=== PATIENT | female | born 1995 | race Caucasian/White ===

== ENCOUNTER → 2020-11-27 | Outpatient (CLI) | payer OTHER ==
--- NOTE | 2020-11-27 13:01 | REP ---
INDICATION: UTERINE ANOMALY. COMPARISON: There is an outside prior which I do not have for comparison TECHNIQUE: Transabdominal FINDINGS: Multiple ultrasonographic images of the gravid uterus shows a single living intrauterine gestation in the cephalic presentation. Doppler interrogation of the heart shows a heart rate of 147 beats per minute. The placenta is posterior and not low-lying. The cervix measures 3.9 cm in length and is closed. The subjective amniotic fluid volume is within normal limits. The calculated amniotic fluid index is 17.1 within expected range of 8.6-24.2. BPD: 8.5 cm 34 weeks 2 days HC: 31.1 cm 34 weeks 5 days AC: 29.0 cm 33 weeks 0 days FL: 6.4 cm 33 weeks 0 days The estimated weight is 2167 g which is at the 82nd percentile for a 31 week 6 day gestational age. The fetus was too large for a anatomical screen. No anomalies were identified, however, multiple anatomical structures were suboptimally visualized IMPRESSION: Limited OB ultrasound showing a single living intrauterine gestation as described above with an estimated gestational age of 33 weeks 4 days via composite criteria and an estimated date of delivery of 01/11/2021 by today's exam. <Electronically signed by Richy Solorzano > 11/27/20 1257
== END ==
LOC: M RAD 10:56
PROVIDERS: ATTEND Obstetrics & Gynecology
DX: Z34.83 Encounter for supervision of other normal pregnancy, third trimester (principal)

== ENCOUNTER 2021-01-21 05:27 | Inpatient (IN) | payer OTHER ==
[2021-01-21] VITALS (22 sets, daily range): BP systolic 114–148; BP diastolic 52–77
[~2021-01-21] VITALS: Ht 172.7 cm; Wt 101.6 kg
[2021-01-21] MEDS ORDERED: OXYTOCIN 30 UNITS IN 0.9% NaCl 500ML IV BAG (J2590) As Ordered ONE ×2 (06:01→14:17)
[2021-01-21] MEDS ORDERED: LIDOCAINE 1% MDV 50ML VIAL As Ordered ONE (06:05)
[2021-01-21] MEDS ORDERED: LACTATED RINGER'S 1000 ML IV STA (06:09)
[2021-01-21] MEDS ORDERED: CARBOPROST TROMETHAMINE 250 MCG/ML AMP IM PRN (06:10)
[2021-01-21] MEDS ORDERED: LIDOCAINE 1% MDV 20ML VIAL INFIL PRN (06:10)
[2021-01-21] MEDS ORDERED: OXYTOCIN DRIP 30 UNITS in IV 1 EA IV SCH ×6 (06:10→16:20)
[2021-01-21] MEDS ORDERED: LR 1,000 ML IV SCH ×2 (06:10→16:30)
[2021-01-21] MEDS ORDERED: METHYLERGONOVINE MALEATE 0.2 MG/ML VIAL (J2210) IM PRN (06:10)
[2021-01-21] MEDS ORDERED: TRANEXAMIC ACID INJection 1,000 MG in NS 100 ML IV PRN (06:10)
[2021-01-21] MEDS ORDERED: OXYTOCIN DRIP 30 UNITS in IV 1 EA IV PRN ×4 (06:10)
[2021-01-21] MEDS ORDERED: OXYTOCIN INJ 10 UNITS/ML VIAL (J2590) IV PRN (06:10)
[2021-01-21] MEDS ORDERED: IRON240T PO (06:17)
[2021-01-21] MEDS ORDERED: COLA100C5 PO (06:17)
[2021-01-21] MEDS ORDERED: VITA100T59 PO (06:17)
[2021-01-21] MEDS ORDERED: HOME MED LIST COMPLETE! XX SCH (06:20)
--- NOTE | 2021-01-21 06:23 | HPEPDOC ---
Obstetrical History & Physical General Date of Admission Jan 21, 2021 at 5:52 am History of Present Illness 25 yo ( Twins) Admitted in active labor at 39w5d. reports contractions for the last 4 hrs. notes some bloody discharge. baby is moving and she denies leaking fluids. she says that she GBS neg. 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: No pertinent history Past Medical History Surgical History: Denies/None Family History Significant Family History: No pertinent family hx Social History Marital Status: Family situation: Spouse/partner home * Smoker: non-smoker Alcohol: Denies Drugs: denies Abuse Violence Screening Have you been hit/kicked/slapp: No Have you been sexually assault: No Imunizations Tdap status: current Allergies Coded Allergies: No Known Allergies (Unverified , 01/21/21) Medications Scheduled Ascorbic Acid (Vitamin C) 100 Mg Tablet, 1 TAB PO DAILY Docusate Sodium (Colace) 100 Mg Capsule, 1 CAP PO BID Ferrous Gluconate (Iron) 240 Mg Tablet, 1 TAB PO DAILY Physical Examination Physical Examination GENERAL: Alert and oriented times three. BREAST: . ABDOMEN: Gravid and non-tender to touch. FETUS: Is vertex (VTX) by sterile vaginal examination (SVE), fetus is vertex (VTX) by Ty. HEART RATE: Regular rate and rhythm. LUNGS: normal work of breathing EXTREMITIES: No edema. SVE: 8/C/0 Steroid Therapy Steroid Therapy: No Vaginal Examination Cervical Consistency: Soft Cervical Position: Anterior Presentation: Cephalic presentation Assessment Heart Rate (FHR): 140 Variability: Moderate Accelerations: Positive Decelerations: None Tocometer Contractions: Yes Frequency: regular Duration: greater than 60 seconds Strength: palpated as strong Multi-drug resistant Organism: No history of MDRO Assessment/Plan Assessment 25 yo ( Twins) Admitted in active labor at 39w4d for TOLAC. Hemodynamically stable 1. HX OF C/SX1 FOR DELIVERY OF SECOND TWIN AT 25 WEEKS Plan Admit and orient. Community Liaison Officer and consent. Diet: CLEAR Group B Streptococcus (GBS) [negative]. Labs and intravenous (IV) per unit protocol. Lactated Ringers (LR): Bolus 1000 mL, then at 125 mL/hr. Anticipate C-S as appropriate. Labor and Delivery Counseling The patient was counseled on the risks and benefits of both a repeat C/S in addition to a COLLIN. The patient understands that she has a 0.2% - 1.5% chance of a catastrophic uterine rupture if a COLLIN is undertaken (with possible or maternal morbidity and mortality). She also understands that, with a COLLIN, she has a risk of hemorrhage, perineal injury, operative vaginal delivery, incontinence or the need to proceed with a delivery after laboring which incurs additional risk to mother and baby. She verbalizes understanding that a delivery may result in hemorrhage, increased time to infant delivery, TTN, injury to any abdominal structure with increased risk of abdominal adhesions, unsightly wound healing and increased wound risks including seroma, hematoma or infection with possible need for return to the OR. She has been counseled that her chance of a successful is 60-80%. She also verbalizes understanding that women with at least a 60-70% chance of have equal or less maternal morbidity when they undergo TOLAC than women undergoing elective repeat delivery. Similarly, because morbidity is higher in the setting of a failed TOLAC than in , women with higher chances of achieving have lower risks of morbidity. Mother strongly desires TOLAC. IZABELLA BROOKS MD Jan 21, 2021 06:23
[2021-01-21 06:53] LABS: BASO % 0.3 % (0.0-1.0); EOS # 0.1 10^3/uL (0.0-0.5); EOS % 0.9 % (0.0-3.0); HEMATOCRIT 41.1 % (36.0-47.0); HEMOGLOBIN 14.1 g/dl (12.0-15.5); LYMPH # 2.9 10^3/uL (1.5-5.0); LYMPH % 19.5 % (24.0-44.0); MEAN CORPUSCULAR HEMOGLOBIN 31.5 pg (27.0-33.0); MEAN CORPUSCULAR HGB CONC 34.3 g/dl (32.0-36.5); MEAN CORPUSCULAR VOLUME 91.9 fl (80.0-96.0); MONO # 0.9 10^3/uL (0.0-0.8); NEUTROPHILS # 10.8 10^3/uL (1.5-8.5); NEUTROPHILS % 72.4 % (36.0-66.0); PLATELET COUNT, AUTOMATED 225 10^3/uL (150-450); RED BLOOD COUNT 4.47 10^6/uL (4.00-5.40); WHITE BLOOD COUNT 14.9 10^3/uL (4.0-10.0)
[2021-01-21] MEDS ORDERED: EPIDURAL COMMENT XX SCH (07:18)
[2021-01-21] MEDS ORDERED: ePHEDrine SULFATE 25 MG/5 ML(5MG/ML) SYRINGE IV PRN (07:18)
[2021-01-21] MEDS ORDERED: LACTATED RINGER'S 1000 ML IV PRN (07:18)
[2021-01-21] MEDS ORDERED: diphenhydrAMINE 50MG/ML VIAL (J1200) IV PRN (07:18)
[2021-01-21] MEDS ORDERED: EPIDURAL/PCA KEYS XX PRN (07:18)
[2021-01-21] MEDS ORDERED: ONDANSETRON 4MG/2ML VIAL IV PRN ×3 (07:18→16:30)
[2021-01-21] MEDS ORDERED: REFRIGERATOR IV KEYS XX PRN (07:18)
[2021-01-21] MEDS ORDERED: NALOXONE INJ 0.4MG/1ML VIAL (J2310 PER 1MG) IV PRN ×3 (07:18→14:45)
[2021-01-21] MEDS ORDERED: FENTANYL 2MCG/ML ROPIVACAINE 0.2% IN 0.9% NACL 100ML IVBAG As Ordered ONE ×2 (07:24→12:36)
[2021-01-21] MEDS: FENTANYL/ROPIVACAINE/NACL BAG 100 ML EPIDURAL SCH ×2 (07:58→12:41)
--- NOTE | 2021-01-21 08:33 | IPNPDOC ---
Obstetrical Progress Note Date of Service Jan 21, 2021 Subjective Pt states feeling much better since epidural other than a left groin hot spot. Objective Vital Signs Date Time Temp Pulse Resp B/P (MAP) Pulse Ox O2 Delivery O2 Flow Rate FiO2 01/21/21 06:40 84 16 125/68 (87) 01/21/21 06:03 98.2 98 Room Air Assessment Heart Rate (FHR): 140 Variability: Moderate Accelerations: Positive Decelerations: None Heart Rate Tracing: Category I Tocometer Contractions: Yes Frequency: regular Duration: less than 60 seconds Strength: palpated as strong Sterile Vaginal Examination Dilation: 9 cm (per nursing staff) Effacement (%): 100% Station: -1 Cervical Consistency: Soft Assessment and Plan Age: 2 : 0 Term: 0 Pre-term: 1 Abortions: 0 Livin EGA at Admission: 39 (+5) Status: Reassuring Group B Streptococcus: Negative Anticipate: Vaginal Delivery Additional Comments Complete LR bolus then resume LR @125mL/hr, continuous efm x2, monitor for change in or maternal status, encourage frequent maternal repositioning, anticipate vaginal delivery. SONAM HAYDEN CNM Jan 21, 2021 08:33
--- NOTE | 2021-01-21 11:01 | IPNPDOC ---
Obstetrical Progress Note Date of Service Jan 21, 2021 Subjective Pt states feeling comfortable on epidural Objective Vital Signs Date Time Temp Pulse Resp B/P (MAP) Pulse Ox O2 Delivery O2 Flow Rate FiO2 01/21/21 08:35 82 18 133/67 (89) 01/21/21 06:03 98.2 98 Room Air Assessment Heart Rate (FHR): 140 Variability: Moderate Accelerations: Positive Decelerations: Variable Heart Rate Tracing: Category II Tocometer Contractions: Yes Frequency: regular, every 2-2 min. 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
[2021-01-21] MEDS ORDERED: CALCIUM CARBONATE 500 MG CHEW U/D PO PRN (11:05)
[2021-01-21] MEDS ORDERED: AZITHROMYCIN INJ 500 MG, VIAL MATE ADAPTER 1 EACH in NS 250 ML IV ONE (13:50)
[2021-01-21] MEDS ORDERED: ceFAZolin SOD 2 GM in IV 1 EA IV ONE (13:50)
[2021-01-21] MEDS ORDERED: BICITRA 30ML SOLN UDC PO ONE (13:55)
[2021-01-21] MEDS ORDERED: ceFAZolin SOD 1 GM in D5W MINI-BAG PLUS 50 ML IV ONE ×2 (14:00→14:15)
[2021-01-21] MEDS ORDERED: ONDANSETRON 4MG/2ML VIAL As Ordered ONE (14:17)
[2021-01-21] MEDS ORDERED: MORPHINE PRES-FREE INJ 10 MG/10 ML VIAL (J2274) As Ordered ONE (14:17)
[2021-01-21] MEDS ORDERED: LIDOCAINE 2% W/EPINEPHRINE 20ML VIAL **PRES FREE As Ordered ONE (14:17)
[2021-01-21] MEDS ORDERED: METOCLOPRAMIDE INJ 10MG/2ML VIAL (J2765 PER 1) IV PRN ×2 (14:45→16:30)
[2021-01-21] MEDS ORDERED: NALBUPHINE HCL 10 MG/ML AMP (J2300) IV PRN (14:45)
[2021-01-21] MEDS ORDERED: fentaNYL 100 MCG/2 ML INJECTION (J3010) As Ordered ONE (14:45)
[2021-01-21] MEDS ORDERED: KETOROLAC 60MG 2ML VIAL As Ordered ONE (14:48)
[2021-01-21] MEDS ORDERED: KETOROLAC 30 MG/ML 1ML VIAL IV PRN (14:50)
[2021-01-21 14:56] LABS: CORD GAS ABE A -4.7; CORD GAS HCO3 A 21.2 MEQ/L; CORD GAS PH A 7.32 UNITS; CORD GAS PO2 A 35.6 mmHg; CORD GAS SBC A 20.1 MEQ/L; CORD GAS TCO2 A 22.4 MEQ/L
[2021-01-21 14:57] LABS: CORD GAS ABE V -4.6; CORD GAS HCO3 V 21.1 MEQ/L; CORD GAS O2 SAT V 56.2 %; CORD GAS PCO2 V 41.4 mmHg; CORD GAS PH V 7.326 UNITS; CORD GAS PO2 V 25.3 mmHg; CORD GAS SBC V 19.8 MEQ/L; CORD GAS TCO2 V 22.4 MEQ/L
--- NOTE | 2021-01-21 16:08 | POST-OPPD ---
Postoperative Procedure Note Date Of Procedure: Jan 21, 2021 Time Of Procedure: 14:00 DATE OF PROCEDURE: 01/21/21 PREPROCEDURE DIAGNOSES: [arrest of descent]. POSTPROCEDURE DIAGNOSES: [status post repeat low transverse delivery]. PROCEDURE PERFORMED: [repeat low transverse delivery]. SURGEON: [Bryan Mays], FACILITIES ENGINEERING MANAGER: [Nabeel Guzman], FACILITIES ENGINEERING MANAGER: [Hilaria Lyons], BRAYAN ANESTHESIA: [epidural]. ESTIMATED BLOOD LOSS: Approximately [700] mL. COMPLICATIONS: [none]. FINDINGS: [female ; 3710g; apgars 4/8/9] SPECIMENS REMOVED: [none] DESCRIPTION OF PROCEDURE: [After obtaining informed consent the patient was brought to the operating suite and prepped/draped in the usual sterile manner. A timeout was called and the patient name, date of and procedure to be performed were verified. The skin was incised with the scalpel and this was carried down to the level of the fascia. The fascia was incised with the scalpel, and this was carried laterally with the núñez scissors bilaterally. The fascia was then dissected off the rectus muscles superiorly and inferiorly. The peritoneum was identified, lifted with tonsils, palpated and found to be free of bowel then opened sharply with the metzenbaum scissors. The peritoneum was then stretched manually. The bladder blade was placed and a bladder flap was created. The uterus was incised with the scalpel then entered bluntly. Clear fluid was noted. The head was noted to be deeply impacted into the pelvis. I was able to slowly work my fingers around the head. The head was flexed and slowly raised. Progress was continuous however it was noted that greater than 5 minutes had passed since the uterine incision. At this point I requested Dr. Guzman's presence for assistance. I then delivered the head followed by the corpus without difficulty. The was stimulated, suctioned. The cord was clamped, cut and the was handed to awaiting physicians. The placenta was delivered intact. Dr. Guzman then assisted with visualization until completion of the closure of the hysterotomy. The uterus was exteriorized and the interior wiped with a laparotomy sponge to remove any remaining placenta. 0-vicryl was then used to close the hysterotomy in running locking fashion. Hemostasis was noted. The posterior culdesac was irrigated. The uterus was returned to the abdomen. The hysterotomy was then inspected again and there was some oozing at the middle hysterotomy and a figure of eight of 0-vicryl was placed. THere was bleeding at the left angle of the hysterotomy which was also sutured with 0-vicryl figure of eight. Arrista was then applied to the uterine incision for hemostasis. The area was observed with hemostasis noted. The fascia was then closed with 0-vicryl in running fashion. The subcutaneous tissue was irrigated then closed with 3-0 vicryl. The skin was closed with 4-0 monocryl and the incision covered with a silver impregnated dressing. The vagina was cleared of all clots and debris. Mother and baby were in good condition taken to the post-anesthesia recovery unit. ]. BRYAN MAYS DO Jan 21, 2021 16:08
--- NOTE | 2021-01-21 16:17 | IPNPDOC ---
Text Note Date of Service The patient was seen on 01/21/21. NOTE I was called by [facility] to evaluate the labor progress. Miguel Vale has been pushing for 2.5 hours without progress. She is a 25yo at 39+4, she is a TOLAC. EFW 3400g, GBS negative, posterior placenta. The strip was regular heart rate, positive accelerations, minimal variability and variable decelerations. I performed a cervical examination and she was found to be C/C/0. During a contraction I had her push and there was no descent of the head over three pushes. I explained to the patient that she was remote from delivery, not making progress and the tracing was indeterminate. At this time operative delivery was not an option and I offered her delivery vs. continued pushing and she agreed with delivery. I explained the risks including bleeding, infection, damage to nearby organs, possible hysterectomy, and she agreed. SHe also consented to transfusion, risks reviewed including reaction and infection. VS,Fishbone, I+O VS, Fishbone, I+O Laboratory Tests 01/21/21 05:55 Vital Signs Date Time Temp Pulse Resp B/P (MAP) Pulse Ox O2 Delivery O2 Flow Rate FiO2 01/21/21 13:06 80 18 116/60 (78) 01/21/21 12:50 99.2 01/21/21 06:03 98 Room Air BRYAN MAYS DO Jan 21, 2021 16:17
[2021-01-21] MEDS ORDERED: MEASLES,MUMPS,RUBELLA VACCINE INJ (MMR-II) (90707) SC SCH (16:20)
[2021-01-21] MEDS ORDERED: RHOGAM 300 MCG (1500 IU) INJ (J2790) IM SCH (16:20)
[2021-01-21] MEDS ORDERED: PROMETHAZINE 25 MG TAB PO PRN (16:20)
[2021-01-21] MEDS ORDERED: METHYLERGONOVINE MALEATE 0.2 MG TAB PO PRN (16:20)
[2021-01-21] MEDS ORDERED: MORPHINE 2 MG/ML 1ML VIAL (J2270) IV PRN (16:20)
[2021-01-21] MEDS ORDERED: oxyCODONE 5MG TAB PO PRN (16:20)
[2021-01-21] MEDS ORDERED: MEPERIDINE INJ 25 MG/ML VIAL (J2175) IV PRN (16:30)
[2021-01-21] MEDS ORDERED: fentaNYL 100 MCG/2 ML INJECTION (J3010) IV PRN (16:30)
[2021-01-21] MEDS: ACETAMINOPHEN 500 MG TAB PO SCH ×2 (17:17→22:53)
--- NOTE | 2021-01-21 19:45 | IPNPDOC ---
Text Note Date of Service The patient was seen on 01/21/21. NOTE Entered room to evaluate Miguel Belcher I was notified by nursing of a tem perature of 100.4 fahrenheit. Seen in her room, she was comfortably. She denied chills, chest pain, shortness of breath, foul vaginal discharge. Vitals otherwise within normal limits. On exam she was alert and oriented with nonlabored breathing, her abdomen was appropriately tender pos toperatively. Her incision was covered with optifoam dressing however no visible erythema, induration or point tenderness. She has a catheter in place and has yet to ambulate since surgery. At this time this appears to be a perioperative fever, likely surgical inflammation/immune response. No signs of GAS or other fulminant infection. Discussed with patient, will continue to monitor; if fever persists will workup. VS,Fishbone, I+O VS, Fishbone, I+O Laboratory Tests 01/21/21 05:55 Vital Signs Date Time Temp Pulse Resp B/P (MAP) Pulse Ox O2 Delivery O2 Flow Rate FiO2 01/21/21 18:45 100.6 87 17 119/61 (80) 98 Room Air BRYAN MAYS DO Jan 21, 2021 19:45
[2021-01-21] MEDS: LR 1,000 ML IV SCH (20:16)
[2021-01-21] MEDS: diphenhydrAMINE 50MG/ML VIAL (J1200) IV PRN (20:59)
[2021-01-21] MEDS: KETOROLAC 30 MG/ML 1ML VIAL IV SCH (20:59)
[2021-01-22 02:00] VITALS: BP 112/57
[2021-01-22] MEDS: KETOROLAC 30 MG/ML 1ML VIAL IV SCH ×2 (03:36→09:02)
[2021-01-22] MEDS: diphenhydrAMINE 50MG/ML VIAL (J1200) IV PRN (03:36)
[2021-01-22] MEDS: SIMETHICONE 80MG CHEW TAB PO PRN ×2 (03:45→21:03)
[2021-01-22] MEDS: LR 1,000 ML IV SCH ×3 (03:46→16:20)
[2021-01-22] MEDS: ACETAMINOPHEN 500 MG TAB PO SCH ×4 (05:13→21:54)
[2021-01-22 06:00] VITALS: BP 110/58
--- NOTE | 2021-01-22 06:48 | IPNPDOC ---
Progress Note Date of Service: Jan 22, 2021 Day#: 1 Progress Note SUBJECT: Miguel Vale is a 25-year-old 2 now Para 1201 status post uncomplicated repeat low transverse delivery at 39+4 weeks' at approximately 1440 hours on [id number] of a Female 8 pounds 3 ounces , doing well /operative day # 1. She has been ambulating, voiding spontaneously without issue and tolerating regular diet. Breast feeding without issue. Reports lochia is small. Patient is ambulating well. OBJECTIVE: VITAL SIGNS: Within normal limits, afebrile. Alert and oriented times three. Breath sounds clear to auscultation. Heart rate: Regular rate and rhythm, no murmurs, rubs or gallops. Abdomen: Fundus firm at U-2. Soft, appropriate tenderness to palpation postoperatively. ASSESSMENT: 25-year-old 2 now Para 1201 status post uncomplicated repeat low transverse delivery indicated for arrest of descent, category II remote from delivery doing well on day 1 Vitals within normal limits, afebrile, hemodynamically stable with no evidence of infection. PLAN: 1. Discharge to home tomorrow likely. 2. Tylenol, Motrin & oxycodone for pain. 3. Encourage breast feeding and ambulation. 4. Will practice natural family planning and condoms for contraception 5. Follow up at 2 weeks for incision check / depression screen (higher risk due to prior demise of twins) & Routine PP visit in 6 weeks in clinic. 6. Discussed return precautions at length. VS, I&O, 24H, Fishbone Vital Signs/I&O Vital Signs Date Time Temp Pulse Resp B/P (MAP) Pulse Ox O2 Delivery O2 Flow Rate FiO2 01/22/21 02:00 98.6 98 20 112/57 (75) 96 Room Air I&O- Last 24 Hours up to 6 AM 01/22/21 06:00 Intake Total 4326 ml Output Total 1605 ml Balance 2721 ml Laboratory Data 24H LABS Laboratory Tests 2 01/21/21 08:26: Serology Scanned Report Hepatitis B Testing 01/21/21 14:48: Cord Arterial Blood pH 7.320, Cord Arterial Blood PCO2 42.0, Cord Arterial Blood PO2 35.6, Cord Arterial Blood HCO3 21.2, Cord Arterial Blood Total CO2 22.4, Cord Arterial Blood Base Excess -4.7, Cord Arterial Base Excess (Standard 20.1, Cord Arterial Bld Oxygen Saturation 76.0, Cord Venous Blood pH 7.326, Cord Venous Blood PCO2 41.4, Cord Venous Blood PO2 25.3, Cord Venous Blood HCO3 21.1, Cord Venous Blood Total CO2 22.4, Cord Venous Base Excess (Actual) -4.6, Cord Venous Base Excess (Standard) 19.8, Cord Venous Blood Oxygen Saturation 56.2 01/21/21 19:58: Bedside Glucose (Misc Panel) 76 BRYAN MAYS DO Jan 22, 2021 06:48
[2021-01-22 07:23] LABS: HEMATOCRIT 26.2 % (36.0-47.0); MEAN CORPUSCULAR HEMOGLOBIN 31.4 pg (27.0-33.0); MEAN CORPUSCULAR HGB CONC 33.6 g/dl (32.0-36.5); MEAN CORPUSCULAR VOLUME 93.6 fl (80.0-96.0); PLATELET COUNT, AUTOMATED 141 10^3/uL (150-450); WHITE BLOOD COUNT 14.5 10^3/uL (4.0-10.0)
[2021-01-22 07:33] LABS: HEMOGLOBIN 8.8 g/dl (12.0-15.5)
[2021-01-22] MEDS: PRENATAL VITAMINS CHEWABLE TABLET PO SCH (08:45)
[2021-01-22] MEDS: oxyCODONE 5MG TAB PO PRN ×2 (08:47→21:03)
[2021-01-22 10:00] VITALS: BP 99/54
[2021-01-22 14:00] VITALS: BP 108/53
[2021-01-22] MEDS: IBUPROFEN 800 MG TAB PO SCH (16:48)
[2021-01-22 18:00] VITALS: BP 104/56
[2021-01-22] MEDS ORDERED: DOCUSATE SODIUM 100MG CAPSULE PO PRN (20:30)
[2021-01-22 22:04] VITALS: BP 99/50
[2021-01-23] MEDS: IBUPROFEN 800 MG TAB PO SCH ×2 (00:58→08:27)
[2021-01-23 02:15] VITALS: BP 112/60
[2021-01-23] MEDS: ACETAMINOPHEN 500 MG TAB PO SCH ×2 (05:16→10:32)
[2021-01-23] MEDS: SIMETHICONE 80MG CHEW TAB PO PRN (05:18)
[2021-01-23 06:15] VITALS: BP 100/55
[2021-01-23] MEDS ORDERED: IBUP80TA PO (07:11)
[2021-01-23] MEDS ORDERED: OXYC-517 PO (07:11)
[2021-01-23] MEDS ORDERED: DOCU100C16 PO (07:11)
[2021-01-23] MEDS: PRENATAL VITAMINS CHEWABLE TABLET PO SCH (08:27)
[2021-01-23] MEDS ORDERED: INFLUENZA QUADRIVALENT PF VACCINE 0.5ML SYRINGE IM ONE (09:00)
--- NOTE | 2021-01-23 09:44 | DSES ---
DISCHARGE SUMMARY DATE OF ADMISSION: 01/21/2021 DATE OF DISCHARGE: 01/23/2021 This 25-year-old, 2 was admitted in active labor at 39 and 5 weeks of gestation, she had some bloody discharge and some show. She had a previous section and was attempting to do a trial of labor after (TOLAC). She had a category 2 strip, remote from delivery, and arrest of descent. She had a repeat low transverse section, live female , 8 pounds 3 ounces, 3710 grams, scores of 4 and 8 at 1 and 5 minutes, respectively. Arterial pH 7.30, base excess -4.7, venous pH 7.3, base excess -4.6. On her second day, we discussed phlebitis, cystitis, mastitis, endometritis, and cellulitis, diet, exercise, pain management, perineal, breast, and wound care. The rest of the examination is unremarkable. Normocephalic, atraumatic. Neck full range of motion. Pupils equal and reactive to light. Distal pulses are symmetric. No evidence of deep venous thrombosis (DVT), pulmonary embolus (PE), or superficial phlebitis. Chest is clear bilaterally to the bases. No wheezes or rhonchi. No costovertebral angle (CVA) tenderness. Abdomen is soft, four quadrant bowel sounds are noted. Uterus is 2 below. Lochia is moderate. Incision is clean and dry. No rashes, lesions, or pruritus. No arthralgia, myalgia, no complaint of joint pain. No complaint of cough, wheeze, shortness of breath, or dyspnea on exertion. No nausea, vomiting, diarrhea, or constipation. No urgency or frequency. Her admitting hemoglobin was 14.1, hematocrit 41.1, and platelets were 225. Her discharge hemoglobin 8.8, hematocrit 26.2, and platelets are 141, and she is asymptomatic. Her vital signs on discharge: Her blood pressure is 100/55, respirations are 17, pulse is 86, and temperature is 97.2. We discussed phlebitis, cystitis, mastitis, endometritis, and cellulitis, diet, exercise, pain management, perineal, breast, and wound care. She is to plan on picking up her medications at [place], 2 week incision check, 6 week check at [facility] ([facility]). All questions were answered. Patient was discharged improved after a 20 minute discussion. Edited: [facility] 01/24/2021 1359 MTDD
== END 2021-01-23 12:57 | disposition home or self-care (01) | DRG 773 ==
LOC: M LDO 05:27 → M LDI 05:52 → M OBS 17:09
PROVIDERS: ADMIT Obstetrics & Gynecology; ATTEND Obstetrics & Gynecology
PROC: 10D00Z1 Extraction of Products of Conception, Low, Open Approach (ICD-10-PCS; principal; 2021-01-21 14:00)
DX: O32.4XX0 Maternal care for high head at term, not applicable or unspecified (principal); Z37.0 Single live birth; Z3A.39 39 weeks gestation of pregnancy; O34.211 Maternal care for low transverse scar from previous cesarean delivery; O31.22X2 Continuing pregnancy after intrauterine death of one fetus or more, second trimester, fetus 2